=== PATIENT | male | born 1990 | race Caucasian/White ===

== ENCOUNTER 2016-11-26 02:45 | Emergency (ER) | payer SELFPAY ==
[2016-11-26 03:30] VITALS: BP 127/76; PULSE 116; TEMP 99.9; BMI 34.2
[2016-11-26] MEDS ORDERED: SODIUM CHLORIDE 0.9% 1000 ML INFUS.BAG IV ONE (03:58)
[2016-11-26] MEDS ORDERED: ONDANSETRON 4 MG/2 ML VIAL IVPUSH ONE (03:58)
[2016-11-26] MEDS ORDERED: SODIUM CHLORIDE 0.9% 1000 ML INFUS.BAG IV PRN (04:01)
[2016-11-26 04:22] LABS: BASOPHIL 0.3 % (0-2.0); MCH 29.3 pg (25.7-33.7); MCHC 33.4 g/dl (32.0-35.9); MEAN CELL VOLUME 87.8 fl (80-96); NEUTROPHILS 86.9 % (42.8-82.8); PLATELET COUNT 204 K/MM3 (134-434); RDW 13.2 % (11.9-15.9); WHITE BLOOD COUNT 13.8 K/mm3 (4.0-10.0)
--- NOTE | 2016-11-26 04:23 | PDOC ---
History of Present Illness - General Chief Complaint: Nausea/Vomiting Stated Complaint: NAUSEA,SORE THROAT Time Seen by Provider: 11/26/16 03:58 History Source: Patient - History of Present Illness Initial Comments: 11/26/16 04:18 26 year old male with fever, nausea and vomiting x 4 days. no BM x 2 days.denies chest pain, headache, urinary symptoms. child with cold like symptoms. no pmhx no pshx Past History - Past Medical History Allergies/Adverse Reactions: Allergies Allergy/AdvReac Type Severity Reaction Status Date / Time No Known Allergies Allergy Verified 11/26/16 03:30 Home Medications: Ambulatory Orders Azithromycin 250 mg PO DAILY #4 tablet 11/26/16 Other medical history: Denies - Immunization History Immunization Up to Date: No - Suicide/Smoking/Psychosocial Hx Smoking History: Never smoked Have you smoked in the past 12 months: No Information on smoking cessation initiated: No Hx Alcohol Use: No Drug/Substance Use Hx: No Substance Use Type: None Review of Systems - Review of Systems Able to Perform ROS?: Yes Is the patient limited Serbian proficient: No Constitutional: Yes: Chills, Fever. No: Symptoms Reported, See HPI, Diaphoresis , Loss of Appetite, Malaise, Night Sweats, Weakness, Weight Stable, Unintentional Wgt. Loss, Unexplained wgt Loss, Other Respiratory: Yes: Cough. No: Symptoms reported, See HPI, Orthopnea, Shortness of Breath, SOB with Exertion, SOB at Rest, Stridor, Wheezing, Productive cough, Hemoptysis, Other ABD/GI: Yes: Nausea, Vomiting. No: Symptoms Reported, See HPI, Abdominal Distended, Abd. Pain w/ defecation, Blood Streaked Bowels, Constipated, Diarrhea , Difficulty Swallowing, Poor Appetite, Poor Fluid Intake, Rectal Bleeding, Indigestion, Abdominal cramping, Tarry Stools, Other *Physical Exam - Vital Signs Last Vital Signs Temp Pulse Resp BP Pulse Ox 99.9 F H 116 H 22 127/76 95 11/26/16 03:27 11/26/16 03:27 11/26/16 03:27 11/26/16 03:27 11/26/16 03:27 - Physical Exam General Appearance: Yes: Appropriately Dressed Respiratory/Chest: positive: Rales. negative: Chest Tender, Lungs Clear, Normal Breath Sounds, Respiratory Distress, Accessory Muscle Use, Labored Respiration, Rapid RR, Decreased Breath Sounds, Paradoxal Breathing, Crackles, Rhonchi, Stridor, Wheezing, Hyperresonant, Dullness, Plerual Rub, Other Cardiovascular: positive: Regular Rhythm, Regular Rate Gastrointestinal/Abdominal: positive: Normal Bowel Sounds, Soft. negative: Tender Extremity: positive: Normal Capillary Refill, Normal Inspection, Normal Range of Motion Integumentary: positive: Normal Color, Dry, Warm Neurologic: positive: Fully Oriented, Alert, Normal Mood/Affect Heart Score/ECG Review - ECG Intrepretation Rhythm: Regular Rhythm Comment:: 11/26/16 06:51 sinus tachycardia: 106 ED Treatment Course - LABORATORY CBC & Chemistry Diagram: 11/26/16 04:10 11/26/16 04:10 - RADIOLOGY Radiology Studies Ordered: Category Date Time Status CHEST X-RAY PORTABLE* [RAD] Stat Radiology 11/26/16 04:01 Ordered Chest X-Ray Result: No Infiltrates Medical Decision Making - Medical Decision Making 11/26/16 04:22 A; fever r/o sepsis P: cbc cmp lipase blood culture ua ucx *DC/Admit/Observation/Transfer Diagnosis at time of Disposition: Bronchitis Fever Qualifiers: Fever type: unspecified Qualified Code(s): R50.9 - Fever, unspecified - Discharge Dispostion Disposition: HOME Condition at time of disposition: Guarded - Prescriptions Prescriptions: Azithromycin 250 mg PO DAILY #4 tablet - Referrals Referrals: STAFF,NOT ON [Primary Care Provider] - - Patient Instructions Printed Discharge Instructions: Acute Bronchitis Additional Instructions: =take azithromycin as prescribed. follow up with your doctor as soon as possible take tylenol / ibuprofen every 6 hours as needed for fever - Post Discharge Activity Work/School Note: Back to Work
[2016-11-26 04:34] LABS: INR 1.28 (0.82-1.09); PROTHROMBIN TIME (PATIENT) 14.2 SEC (9.98-11.88)
[2016-11-26 04:36] LABS: VENOUS PH 7.43 (7.32-7.42)
[2016-11-26 04:37] LABS: VENOUS BLOOD GAS HCO3 26.4 meq/L (19-25)
[2016-11-26 04:37] LABS: ACTIVATED PTT 30.4 SECONDS (26.9-34.4)
[2016-11-26] MEDS ORDERED: ONDANSETRON 4 MG/2 ML VIAL ONE (04:41)
[2016-11-26 04:46] LABS: ALBUMIN 3.9 g/dl (3.4-5.0); ALK PHOS 82 U/L (45-117); ANION GAP 11 (8-16); BILIRUBIN,TOTAL 0.5 mg/dL (0.2-1.0); CALCIUM 8.6 mg/dL (8.5-10.1); CO2 27 mmol/L (21-32); CPK 185 IU/L (39-308); CREATININE 1.1 mg/dL (0.7-1.3); GLUCOSE,RANDOM 144 mg/dL (74-106); SGOT/AST 14 U/L (15-37); SGPT/ALT 33 U/L (12-78); TOT PROT 7.7 g/dl (6.4-8.2); TROPONIN I < 0.02 ng/ml (0.00-0.05)
[2016-11-26] MEDS ORDERED: ACETAMINOPHEN 325 MG TABLET (FP) PO ONE (05:39)
[2016-11-26] MEDS ORDERED: ACETAMINOPHEN 325 MG TABLET (FP) ONE (06:08)
[2016-11-26] MEDS ORDERED: AZITHROMYCIN 500 MG TABLET PO ONE (06:35)
[2016-11-26] MEDS ORDERED: AZITHROMYCIN 250 MG TABLET ONE (06:44)
[2016-11-26 06:57] LABS: URINE APPEARANCE CLEAR; URINE BILIRUBIN NEGATIVE (NEGATIVE); URINE BLOOD NEGATIVE (NEGATIVE); URINE COLOR YELLOW; URINE GLUCOSE (UA) NEGATIVE (NEGATIVE); URINE KETONE 1+ (NEGATIVE); URINE LEUK ESTERASE NEGATIVE (NEGATIVE); URINE NITRITE NEGATIVE (NEGATIVE); URINE UROBILINOGEN NEGATIVE mg/dL (0.2-1.0)
[2016-11-26 07:02] LABS: URINE PROTEIN 1+ (NEGATIVE)
[2016-11-26 07:10] LABS: URINE MUCUS RARE; URINE RBC 1 /hpf (0-3); URINE WBC 1 /hpf (3-5)
--- NOTE | 2016-11-26 20:57 | EKG ---
Test Reason : Blood Pressure : / mmHG Vent. Rate : 106 BPM Atrial Rate : 106 BPM P-R Int : 152 ms QRS Dur : 084 ms QT Int : 324 ms P-R-T Axes : 039 000 026 degrees QTc Int : 430 ms POOR DATA QUALITY, INTERPRETATION MAY BE ADVERSELY AFFECTED BASELINE ARTIFACTS SINUS TACHYCARDIA SLOW R WAVE PROGRESSION V1-V3 WHEN COMPARED WITH ECG OF 23-APR-2010 07:40, NO SIGNIFICANT CHANGE WAS FOUND REPEAT EKG IF CLINICALLY INDICATED Confirmed by HIWOT BORDEN MD ([id number]) on 11/26/2016 8:57:08 PM Referred By: Confirmed By:HIWOT BORDEN MD
== END 2016-11-26 07:09 | disposition home or self-care (01) ==
LOC: SUPCPDRO 02:45 → JER 02:45
PROC: 3E033GC Introduction of Other Therapeutic Substance into Peripheral Vein, Percutaneous Approach (ICD-10-PCS; principal; 2016-11-26)
DX: J20.9 Acute bronchitis, unspecified (principal); R50.81 Fever presenting with conditions classified elsewhere
CPT/HCPCS: 36415; 71010-TC; 80053; 81003; 81015; 82553; 82803; 83605; 83690; 84484; 85025; 85610; 85730; 86850; 86900; 86901; 87040; 87086; 87804; 93005; 93010; 99282-25